=== PATIENT | female | born 1985 | race Caucasian/White ===

== ENCOUNTER 2016-12-19 15:24 | Inpatient (IN) | payer OTHER ==
[~2016-12-19] VITALS: Ht 157.5 cm; Wt 102.7 kg
[2017-01-05] VITALS (17 sets, daily range): BP systolic 93–117; BP diastolic 52–70; PULSE 62–81; TEMP 97.7
[2017-01-05] MEDS ORDERED: PRENATAL1 TA7 PO (06:40)
[2017-01-05 07:08] LABS: BASO % 0.3 % (0.0-2.0); EOS % 0.6 % (0-4.0); GRAN # 3.6 (1.4-6.5); GRAN % 58.2 % (42.2-75.2); LYMPH # 1.8 (1.2-3.4); MEAN CELL VOLUME 83 fl (80.0-100.0); MEAN CORPUSCULAR HGB CONC 33 g/dl (33.0-37.0); MEAN PLATELET VOLUME 12.6 fl (7.4-10.4); MONO # 0.7 (0.1-0.6); MONO % 11.4 % (1.7-9.3); PLATELET COUNT 196 K/mm3 (130-400); RED BLOOD COUNT 3.89 M/mm3 (4.10-5.30); REDCELL DISTRIBUTION WIDTH-CV 13.5 % (11.5-14.5); WHITE BLOOD COUNT 6.3 K/mm3 (4.8-10.8)
[2017-01-05 07:25] LABS: HEMATOCRIT 32.3 % (37.0-47.0); HEMOGLOBIN 10.8 g/dl (12.5-16.0); MEAN CORPUSCULAR HEMOGLOBIN 28 pg (27.0-31.0)
[2017-01-06 03:00] VITALS: BP 117/57; PULSE 72; TEMP 98
[2017-01-06 07:36] LABS: BASO % 0.2 % (0.0-2.0); EOS % 0.2 % (0-4.0); GRAN # 8.8 (1.4-6.5); GRAN % 77.1 % (42.2-75.2); LYMPH # 1.5 (1.2-3.4); LYMPH % 13.2 % (20.0-51.0); MEAN CELL VOLUME 84 fl (80.0-100.0); MEAN CORPUSCULAR HGB CONC 33 g/dl (33.0-37.0); MONO % 8.9 % (1.7-9.3); PLATELET COUNT 200 K/mm3 (130-400); RED BLOOD COUNT 3.73 M/mm3 (4.10-5.30); REDCELL DISTRIBUTION WIDTH-CV 13.5 % (11.5-14.5); WHITE BLOOD COUNT 11.4 K/mm3 (4.8-10.8)
[2017-01-06 07:39] LABS: HEMATOCRIT 31.2 % (37.0-47.0); HEMOGLOBIN 10.3 g/dl (12.5-16.0); MEAN CORPUSCULAR HEMOGLOBIN 28 pg (27.0-31.0)
[2017-01-06 08:12] VITALS: BP 109/53; PULSE 78
[2017-01-06] MEDS ORDERED: IBU800 M1 PO (08:58)
[2017-01-06] MEDS ORDERED: PERCOCET 325 MG1 TA2 PO (08:58)
[2017-01-06 20:50] VITALS: BP 121/58; PULSE 82; TEMP 97.8
[2017-01-07 07:43] VITALS: BP 117/58; PULSE 73; TEMP 97.6
[2017-01-07 16:36] VITALS: BP 115/78; PULSE 86; TEMP 98.1
[2017-01-07 19:40] VITALS: BP 137/68; PULSE 91; TEMP 97.5
[2017-01-08 07:29] VITALS: BP 110/59; PULSE 67; TEMP 97.8
== END 2017-01-08 10:45 | disposition home or self-care (01) | DRG 766 ==
LOC: EDSTATUS 12-31 10:16 → LDRO 12-31 15:23 → OB 01-05 05:31 → LDR 01-05 10:18 → OB 01-08 10:45
PROVIDERS: Obstetrics & Gynecology
PROC: 10D00Z1 Extraction of Products of Conception, Low, Open Approach (ICD-10-PCS; principal; 2017-01-05)
DX: O34.211 Maternal care for low transverse scar from previous cesarean delivery (principal); N85.8 Other specified noninflammatory disorders of uterus; O99.824 Streptococcus B carrier state complicating childbirth; Z3A.39 39 weeks gestation of pregnancy; Z37.0 Single live birth
CPT/HCPCS: J0690; J1885; J2270; J2370; J2405; J2590; J2765; J7120